=== PATIENT | male | born 1950 | race Caucasian/White ===

== ENCOUNTER → 2016-09-05 | Outpatient (REF) ==
[~2016-09-05] MED LIST: GLUCOPHAGE500 MG/TAB PO; HYZAAR 12.5 MG-1 TAB PO; LANTUS100 U/ML SQ; LIPITOR 40MG TA40 MG PO; LOPRESSOR 550 MG/TAB PO; NEURONTIN300 MG/CAP PO; PLAVIX 75MG TAB75 MG PO; TRICOR145 MG PO; TRILIPIX45 MG PO; VITAMIN D1000 IU PO
== END ==
LOC: ZLAB.WCH 16:54
DX: Z01.89 Encounter for other specified special examinations (principal)
CPT/HCPCS: G0103

== ENCOUNTER → 2016-09-12 | Outpatient (REF) | LOC: ZLAB.WCH 12:12 | DX: Z01.89 Encounter for other specified special examinations (principal) ==

== ENCOUNTER 2016-12-13 16:19 | Inpatient (IN) | payer MEDICARE, BC ==
[~2016-12-13] VITALS: Ht 160 cm; Wt 79.3 kg
[2016-12-13] MEDS ORDERED: LANTUS100 U/ML SQ (16:40)
[2016-12-13] MEDS ORDERED: GLUCOPHAGE500 MG/TAB PO (16:40)
[2016-12-13] MEDS ORDERED: HYZAAR 12.5 MG-1 TAB PO (16:41)
[2016-12-13] MEDS ORDERED: TRILIPIX45 MG PO (16:41)
[2016-12-13] MEDS ORDERED: LOPRESSOR 550 MG/TAB PO (16:42)
[2016-12-13] MEDS ORDERED: VITAMIN D1000 IU PO (16:42)
[2016-12-13] MEDS ORDERED: TRICOR145 MG PO (16:42)
[2016-12-13] MEDS ORDERED: NEURONTIN300 MG/CAP PO (16:43)
[2016-12-13 17:01] LABS: BASO # 0.1 (0.0-0.2); BASO % 0.5 % (0.0-2.0); EOS # 0.2 (0.0-0.7); EOS % 2.3 % (0-4.0); GRAN # 5.8 (1.4-6.5); GRAN % 55.4 % (42.2-75.2); HEMOGLOBIN 17.4 g/dl (13.5-18.0); LYMPH # 3.5 (1.2-3.4); LYMPH % 33.1 % (20.0-51.0); MEAN CELL VOLUME 93 fl (80.0-100.0); MEAN CORPUSCULAR HEMOGLOBIN 33 pg (27.0-31.0); MEAN CORPUSCULAR HGB CONC 36 g/dl (33.0-37.0); MEAN PLATELET VOLUME 10.5 fl (7.4-10.4); MONO # 0.9 (0.1-0.6); MONO % 8.5 % (1.7-9.3); PLATELET COUNT 331 K/mm3 (130-400); REDCELL DISTRIBUTION WIDTH-CV 13.3 % (11.5-14.5); WHITE BLOOD COUNT 10.5 K/mm3 (4.8-10.8)
[2016-12-13 17:06] LABS: ALANINE AMINOTRANSFERASE 25 U/L (21-72); ALBUMIN 4.4 gm/dL (3.5-5.0); ALKALINE PHOSPHATASE 41 U/L (50-136); ANION GAP 13 mmol/L (7-16); BILIRUBIN,TOTAL 0.8 mg/dL (0.0-1.0); BLOOD UREA NITROGEN 38 mg/dL (9-20); CALCIUM 10.3 mg/dL (8.4-10.2); CARBON DIOXIDE 24 mmol/L (22-30); CHLORIDE 100 mmol/L (98-107); CREATININE, serum 1.12 mg/dL (0.66-1.25); GLUCOSE 164 mg/dL (74-106); POTASSIUM 3.9 mmol/L (3.4-5.0); SODIUM 137 mmol/L (137-145); TOTAL PROTEIN 7.6 gm/dL (6.4-8.2)
[2016-12-13 17:17] LABS: TROPONIN-I < 0.012 ng/mL (0.000-0.034)
[2016-12-13 17:29] LABS: PH 5 (5-8); SQUAMOUS EPITHELIAL 0-2 /hpf; URINE APPEARANCE Clear; URINE BACTERIA None Seen /hpf; URINE BILIRUBIN Negative (NEGATIVE); URINE BLOOD Negative (NEGATIVE); URINE COLOR Yellow; URINE GLUCOSE Negative (NEGATIVE); URINE KETONE Negative (NEGATIVE); URINE RBC 0-2 /hpf; URINE UROBILINOGEN Negative (NEGATIVE); URINE WBC 0-2 /hpf
[2016-12-13 18:36] VITALS: BP 143/68; PULSE 62; TEMP 98.6
[2016-12-13 23:28] VITALS: BP 118/57; PULSE 68; TEMP 97.3
[2016-12-14 04:52] VITALS: BP 164/60; PULSE 58; TEMP 98
[2016-12-14 07:54] LABS: BASO % 0.5 % (0.0-2.0); CALCIUM 9.2 mg/dL (8.4-10.2); CREATININE, serum 0.85 mg/dL (0.66-1.25); EOS # 0.2 (0.0-0.7); EOS % 2.5 % (0-4.0); GRAN # 5.4 (1.4-6.5); GRAN % 61.3 % (42.2-75.2); HEMOGLOBIN 15.7 g/dl (13.5-18.0); LYMPH # 2.5 (1.2-3.4); LYMPH % 28.3 % (20.0-51.0); MEAN CELL VOLUME 94 fl (80.0-100.0); MEAN CORPUSCULAR HEMOGLOBIN 33 pg (27.0-31.0); MEAN CORPUSCULAR HGB CONC 35 g/dl (33.0-37.0); MEAN PLATELET VOLUME 10.4 fl (7.4-10.4); MONO # 0.6 (0.1-0.6); MONO % 7.2 % (1.7-9.3); PLATELET COUNT 284 K/mm3 (130-400); POTASSIUM 3.9 mmol/L (3.4-5.0); RED BLOOD COUNT 4.79 M/mm3 (4.20-5.60); REDCELL DISTRIBUTION WIDTH-CV 13.4 % (11.5-14.5); WHITE BLOOD COUNT 8.8 K/mm3 (4.8-10.8)
[2016-12-14 07:59] VITALS: BP 136/65; PULSE 66; TEMP 98
[2016-12-14 12:30] VITALS: BP 149/66; PULSE 61; TEMP 98
[2016-12-14 16:29] VITALS: BP 134/74; PULSE 60; TEMP 98.8
[2016-12-14 20:58] VITALS: BP 147/74; PULSE 66; TEMP 98.1
[2016-12-14 23:15] VITALS: BP 131/66; PULSE 56; TEMP 98
[2016-12-15 04:20] VITALS: BP 137/72; PULSE 60; TEMP 97.9
[2016-12-15 07:56] VITALS: BP 143/65; PULSE 65; TEMP 98.7
[2016-12-15] MEDS ORDERED: LIPITOR 40MG TA40 MG PO (09:52)
[2016-12-15] MEDS ORDERED: PLAVIX 75MG TAB75 MG PO (09:52)
== END 2016-12-15 10:42 | disposition home or self-care (01) | DRG 66 ==
LOC: COL.ER 16:19 → MEDICAL 17:42
PROVIDERS: Emergency Medicine; Family Medicine; Internal Medicine
DX: I63.9 Cerebral infarction, unspecified (principal); I12.9 Hypertensive chronic kidney disease with stage 1 through stage 4 chronic kidney disease, or unspecified chronic kidney disease; E11.22 Type 2 diabetes mellitus with diabetic chronic kidney disease; N18.9 Chronic kidney disease, unspecified; E78.5 Hyperlipidemia, unspecified; Z79.84 Long term (current) use of oral hypoglycemic drugs
CPT/HCPCS: 99223-AI; 99232-AI; 99239; A9585; G8978-GP; G8979-GP; G8980-GP; J1650; J7030

== ENCOUNTER → 2017-01-27 | Outpatient (CLI) | payer MEDICARE, BC | LOC: SUN.DIA 11:01 | DX: E11.9 Type 2 diabetes mellitus without complications (principal); I67.9 Cerebrovascular disease, unspecified; E78.5 Hyperlipidemia, unspecified; Z68.29 Body mass index [BMI] 29.0-29.9, adult; Z71.3 Dietary counseling and surveillance; Z87.891 Personal history of nicotine dependence ==

== ENCOUNTER → 2017-02-12 | Outpatient (CLI) | payer MEDICARE, BC | LOC: SUN.DIA 11:05 | DX: E11.9 Type 2 diabetes mellitus without complications (principal); Z79.4 Long term (current) use of insulin; I67.9 Cerebrovascular disease, unspecified; E78.5 Hyperlipidemia, unspecified; Z68.29 Body mass index [BMI] 29.0-29.9, adult; Z71.3 Dietary counseling and surveillance; Z87.891 Personal history of nicotine dependence ==

== ENCOUNTER → 2017-03-14 | Outpatient (REF) | LOC: ZLAB.WCH 11:41 | DX: Z01.89 Encounter for other specified special examinations (principal) ==

== ENCOUNTER → 2017-05-28 | Outpatient (CLI) | payer MEDICARE, BC | LOC: SUN.DIA 09:23 | DX: E11.9 Type 2 diabetes mellitus without complications (principal); Z79.4 Long term (current) use of insulin; I67.9 Cerebrovascular disease, unspecified; E78.5 Hyperlipidemia, unspecified; Z68.30 Body mass index [BMI] 30.0-30.9, adult; Z71.3 Dietary counseling and surveillance; Z87.891 Personal history of nicotine dependence | CPT/HCPCS: G0108 ==

== ENCOUNTER → 2017-08-27 | Outpatient (REF) | LOC: ZLAB.WCH 18:06 | DX: Z01.89 Encounter for other specified special examinations (principal) ==

== ENCOUNTER → 2018-03-10 | Outpatient (REF) | LOC: ZLAB.WCH 14:28 | DX: Z01.89 Encounter for other specified special examinations (principal) ==

== ENCOUNTER → 2018-04-13 | Outpatient (REF) | LOC: ZLAB.WCH 15:52 | DX: Z01.89 Encounter for other specified special examinations (principal) | CPT/HCPCS: G0103 ==

== ENCOUNTER → 2018-07-14 | Outpatient (REF) | LOC: ZLAB.WCH 18:12 | DX: Z01.89 Encounter for other specified special examinations (principal) ==

== ENCOUNTER → 2018-08-13 | Outpatient (CLI) | payer MEDICARE, BC | LOC: ZCOL.LAB 18:21 | DX: H92.11 Otorrhea, right ear (principal) ==

== ENCOUNTER → 2022-03-17 | Outpatient (CLI) | payer MEDICARE, BC ==
[2022-03-17 12:43] LABS: BASO # 0.1 K/mm3 (0.0-0.2); BASO % 0.6 % (0.0-2.0); EOS # 0.1 K/mm3 (0.0-0.7); GRAN # 6.8 K/mm3 (1.4-6.5); GRAN % 69.5 % (42.2-75.2); HEMOGLOBIN 17.4 g/dl (13.5-18.0); LYMPH % 20.4 % (20.0-51.0); MEAN CELL VOLUME 94 fl (80.0-100.0); MEAN CORPUSCULAR HEMOGLOBIN 32 pg (27-31); MEAN CORPUSCULAR HGB CONC 34 g/dl (33.0-37.0); MEAN PLATELET VOLUME 10.8 fl (7.4-10.4); MONO # 0.8 K/mm3 (0.1-0.6); MONO % 8.1 % (1.7-9.3); PLATELET COUNT 301 K/mm3 (130-400); RED BLOOD COUNT 5.43 M/mm3 (4.20-5.60); REDCELL DISTRIBUTION WIDTH-CV 13.9 % (11.5-14.5)
[2022-03-17 12:55] LABS: ANION GAP 15 mmol/L (7-16); BLOOD UREA NITROGEN 24 mg/dL (8-26); CALCIUM 9.5 mg/dL (8.4-10.2); CARBON DIOXIDE 22 mmol/L (23-31); CHLORIDE 104 mmol/L (98-107); CREATININE, serum 1.32 mg/dL (0.72-1.25); GLUCOSE 274 mg/dL (70-99); POTASSIUM 3.8 mmol/L (3.5-4.5); SODIUM 141 mmol/L (136-145)
[2022-03-17 12:56] LABS: TROPONIN-I < 0.010 ng/mL (0.00-0.033)
== END ==
LOC: ZCOL.LAB 12:23
PROVIDERS: Nurse Practitioner
DX: R07.89 Other chest pain (principal)